=== PATIENT | male | born 1950 | race Caucasian/White ===

== ENCOUNTER 2024-01-16 22:38 | Inpatient (IN) | payer MEDICARE, OTHER ==
[~2024-01-16] VITALS: Ht 162.6 cm; Wt 104.3 kg
[2024-01-16 01:00] VITALS: BP 125/69; PULSE 62; RESP 18; TEMP 98.6; O2SAT 99
[2024-01-17] VITALS (9 sets, daily range): BP systolic 121–150; BP diastolic 52–78; PULSE 62–76; RESP 17–19; TEMP 97.8–99.6; O2SAT 96–100
[2024-01-17] MEDS ORDERED: ONDANSETRON HCL INJ 2MG/ML 2ML 2 MG/ML VIAL IV PRN (00:30)
[2024-01-17] MEDS ORDERED: ACETAMINOPHEN 325 MG TAB PO PRN (00:30)
[2024-01-17] MEDS: DIPHENHYDRAMINE HCL 25 MG CAP PO PRN (02:27)
[2024-01-17] MEDS: HYDROCODONE/APAP 10MG-325MG TAB PO PRN (02:27)
[2024-01-17 06:20] LABS: BASOPHILS % 0.1 % (0.0-1.0); EOSINOPHILS # (AUTO) 0.4 (0.0-0.4); EOSINOPHILS % 5.8 % (0.0-6.0); HEMATOCRIT 31.7 % (38.2-49.6); HEMOGLOBIN 9.5 g/dL (14.0-18.0); LYMPHOCYTES # (AUTO) 0.5 (1.0-3.2); LYMPHOCYTES % 6.9 % (18.0-39.1); MEAN CORPUSCULAR VOLUME 83.4 fL (81-99); MONOCYTES # (AUTO) 0.8 (0.2-0.8); NEUTROPHILS # (AUTO) 5.8 (2.1-6.9); NEUTROPHILS % 76.3 % (38.7-80.0); PLATELET COUNT 259 x10e3/uL (140-360); RED CELL DISTRIBUTION WIDTH 15.8 % (11.7-14.4); WHITE BLOOD COUNT 7.58 x10e3/uL (4.8-10.8)
[2024-01-17 06:22] LABS: INR 1.04; PROTHROMBIN TIME 14.3 seconds (11.9-14.5)
[2024-01-17 06:23] LABS: PARTIAL THROMBOPLASTIN TIME 36.6 seconds (23.8-35.5)
[2024-01-17 06:36] LABS: ALBUMIN 2.6 g/dL (3.5-5.0); ALBUMIN/GLOBULIN RATIO 0.9 (0.8-2.0); BILIRUBIN,TOTAL 0.6 mg/dL (0.2-1.2); CALCIUM 8.5 mg/dL (8.4-10.2); CREATININE, SERUM 0.81 mg/dL (0.72-1.25); TOTAL PROTEIN 5.5 g/dL (6.5-8.1)
[2024-01-17] MEDS ORDERED: CEFADROXIL500 MG PO (06:47)
[2024-01-17] MEDS ORDERED: ASPIRIN81 MG PO (06:47)
[2024-01-17] MEDS ORDERED: ZEBETA10 MG PO (06:47)
[2024-01-17] MEDS ORDERED: PROTONIX20 MG PO (06:47)
[2024-01-17] MEDS ORDERED: COLESTIPOL HCL1 GM PO (06:47)
[2024-01-17] MEDS ORDERED: XARELTO10 MG PO (06:47)
[2024-01-17] MEDS ORDERED: DIOVAN160 MG PO (06:47)
[2024-01-17] MEDS ORDERED: HYDROCHLOROTHIA25 MG PO (06:47)
[2024-01-17] MEDS ORDERED: HYDROCODON-ACE1 EAC8 PO (06:47)
[2024-01-17] MEDS ORDERED: POTASSIUM CHLO20 ME1 PO (06:47)
[2024-01-17] MEDS ORDERED: FEROSUL325 MG PO (06:47)
[2024-01-17] MEDS ORDERED: FLOMAX0.4 MG PO (06:47)
[2024-01-17] MEDS ORDERED: CELEBREX200 MG PO (06:47)
[2024-01-17] MEDS ORDERED: CYCLOBENZAPRINE10 MG PO (06:47)
[2024-01-17] MEDS: HYDROCODONE/APAP 5MG-325MG TAB PO PRN (06:56)
[2024-01-17] MEDS ORDERED: IOPAMIDOL 370 MG/ML 100 ML INFUS..BTL INJ ONE (10:12)
[2024-01-17] MEDS: Vancomycin IV 1 GM in SODIUM CHLORIDE 0.9% 250ML 250 ML IV ONE (13:04)
[2024-01-17] MEDS: Vancomycin IV 1 GM in SODIUM CHLORIDE 0.9% 250ML 250 ML IV SCH (13:05)
[2024-01-17] MEDS ORDERED: CYCLOBENZAPRINE HCL 10 MG TAB PO PRN (13:45)
[2024-01-17] MEDS: ENOXAPARIN SOD INJ 40 MG/0.4 ML SYR SC SCH (17:00)
[2024-01-18] VITALS (8 sets, daily range): BP systolic 128–146; BP diastolic 59–83; PULSE 68–97; RESP 16–18; TEMP 97.7–98.6; O2SAT 97–100
[2024-01-18 05:22] LABS: BASOPHILS % 0.1 % (0.0-1.0); EOSINOPHILS # (AUTO) 0.6 (0.0-0.4); EOSINOPHILS % 8.1 % (0.0-6.0); HEMATOCRIT 32.9 % (38.2-49.6); LYMPHOCYTES # (AUTO) 0.6 (1.0-3.2); LYMPHOCYTES % 7.7 % (18.0-39.1); MEAN CORPUSCULAR HEMOGLOBIN 25.4 pg (28-32); MEAN CORPUSCULAR HGB CONC 30.4 g/dL (31-35); MEAN CORPUSCULAR VOLUME 83.5 fL (81-99); MONOCYTES # (AUTO) 0.8 (0.2-0.8); MONOCYTES % 11.3 % (4.4-11.3); NEUTROPHILS # (AUTO) 5.3 (2.1-6.9); PLATELET COUNT 278 x10e3/uL (140-360); RED BLOOD COUNT 3.94 x10e6/uL (4.3-5.7); RED CELL DISTRIBUTION WIDTH 15.8 % (11.7-14.4); WHITE BLOOD COUNT 7.41 x10e3/uL (4.8-10.8)
[2024-01-18 05:46] LABS: ALBUMIN 2.8 g/dL (3.5-5.0); ALBUMIN/GLOBULIN RATIO 0.8 (0.8-2.0); BILIRUBIN,TOTAL 0.5 mg/dL (0.2-1.2); CALCIUM 8.7 mg/dL (8.4-10.2); CREATININE, SERUM 0.9 mg/dL (0.72-1.25); TOTAL PROTEIN 6.1 g/dL (6.5-8.1)
[2024-01-18] MEDS: PANTOPRAZOLE SODIUM 20 MG TABLET.DR PO SCH (08:37)
[2024-01-18] MEDS: FERROUS SULFATE 325 MG TAB PO SCH (08:37)
[2024-01-18] MEDS: TAMSULOSIN HCL 0.4 MG CAP PO SCH (08:37)
[2024-01-18] MEDS ORDERED: ONDANSETRON HCL 4 MG ORAL DISINTEGRATING TAB PO PRN ×2 (10:15)
[2024-01-19] VITALS (11 sets, daily range): BP systolic 128–150; BP diastolic 52–91; PULSE 60–96; RESP 16–19; TEMP 98.1–98.8; O2SAT 93–100
[2024-01-19 07:40] LABS: BASOPHILS % 0.5 % (0.0-1.0); EOSINOPHILS # (AUTO) 0.6 (0.0-0.4); EOSINOPHILS % 7.6 % (0.0-6.0); HEMATOCRIT 28.2 % (38.2-49.6); LYMPHOCYTES # (AUTO) 0.5 (1.0-3.2); LYMPHOCYTES % 6.6 % (18.0-39.1); MEAN CORPUSCULAR HEMOGLOBIN 25.9 pg (28-32); MEAN CORPUSCULAR HGB CONC 31.9 g/dL (31-35); MONOCYTES # (AUTO) 0.8 (0.2-0.8); MONOCYTES % 11.1 % (4.4-11.3); NEUTROPHILS # (AUTO) 5.3 (2.1-6.9); NEUTROPHILS % 73.4 % (38.7-80.0); PLATELET COUNT 242 x10e3/uL (140-360); RED BLOOD COUNT 3.48 x10e6/uL (4.3-5.7); RED CELL DISTRIBUTION WIDTH 15.8 % (11.7-14.4); WHITE BLOOD COUNT 7.28 x10e3/uL (4.8-10.8)
[2024-01-19 08:09] LABS: ALBUMIN 2.6 g/dL (3.5-5.0); ANION GAP 12.3 mmol/L (8-16); BILIRUBIN,TOTAL 0.4 mg/dL (0.2-1.2); CALCIUM 8.5 mg/dL (8.4-10.2); CREATININE, SERUM 0.94 mg/dL (0.72-1.25); POTASSIUM 4.3 mmol/L (3.5-5.1); TOTAL PROTEIN 5.2 g/dL (6.5-8.1)
[2024-01-19] MEDS: HYDROCHLOROTHIAZIDE 25 MG TAB PO SCH (10:33)
[2024-01-19] MEDS: ALBUTEROL/IPRATROPIUM 3 ML NEB NEB SCH (11:00)
[2024-01-20] VITALS (11 sets, daily range): BP systolic 138–161; BP diastolic 60–85; PULSE 52–95; RESP 18–22; TEMP 98.1–98.4; O2SAT 93–100
[2024-01-20 06:19] LABS: BASOPHILS % 0.4 % (0.0-1.0); EOSINOPHILS # (AUTO) 0.6 (0.0-0.4); EOSINOPHILS % 6.9 % (0.0-6.0); HEMOGLOBIN 9.3 g/dL (14.0-18.0); LYMPHOCYTES # (AUTO) 0.6 (1.0-3.2); LYMPHOCYTES % 6.9 % (18.0-39.1); MEAN CORPUSCULAR HEMOGLOBIN 25.9 pg (28-32); MEAN CORPUSCULAR HGB CONC 32.1 g/dL (31-35); MEAN CORPUSCULAR VOLUME 80.8 fL (81-99); MONOCYTES # (AUTO) 0.8 (0.2-0.8); MONOCYTES % 9.2 % (4.4-11.3); NEUTROPHILS # (AUTO) 6.3 (2.1-6.9); NEUTROPHILS % 75.9 % (38.7-80.0); PLATELET COUNT 232 x10e3/uL (140-360); RED BLOOD COUNT 3.59 x10e6/uL (4.3-5.7); RED CELL DISTRIBUTION WIDTH 15.7 % (11.7-14.4); WHITE BLOOD COUNT 8.27 x10e3/uL (4.8-10.8)
[2024-01-20 06:48] LABS: ALBUMIN 2.6 g/dL (3.5-5.0); ALBUMIN/GLOBULIN RATIO 0.9 (0.8-2.0); ANION GAP 15.4 mmol/L (8-16); BILIRUBIN,TOTAL 0.5 mg/dL (0.2-1.2); CALCIUM 8.5 mg/dL (8.4-10.2); CREATININE, SERUM 0.86 mg/dL (0.72-1.25); TOTAL PROTEIN 5.6 g/dL (6.5-8.1)
[2024-01-20 07:03] LABS: POTASSIUM 3.4 mmol/L (3.5-5.1)
[2024-01-20] MEDS ORDERED: CLEOCIN HCL300 MG PO (15:14)
[2024-01-20] MEDS ORDERED: Vancomycin IV 1 GM in SODIUM CHLORIDE 0.9% 250ML 250 ML IV SCH (18:00)
== END 2024-01-20 17:29 | disposition home or self-care (01) | DRG 603 ==
LOC: MED/SURG2 23:33
PROVIDERS: ADMIT Internal Medicine; ATTEND Internal Medicine
DX: L03.116 Cellulitis of left lower limb (principal); M25.462 Effusion, left knee; D50.9 Iron deficiency anemia, unspecified; R73.09 Other abnormal glucose; R79.89 Other specified abnormal findings of blood chemistry; Z96.653 Presence of artificial knee joint, bilateral; J44.9 Chronic obstructive pulmonary disease, unspecified; F17.200 Nicotine dependence, unspecified, uncomplicated; I10 Essential (primary) hypertension; E66.01 Morbid (severe) obesity due to excess calories; Z68.39 Body mass index [BMI] 39.0-39.9, adult; Z85.46 Personal history of malignant neoplasm of prostate; Z86.79 Personal history of other diseases of the circulatory system; Z86.718 Personal history of other venous thrombosis and embolism; Z79.01 Long term (current) use of anticoagulants; Z79.899 Other long term (current) drug therapy; Z79.82 Long term (current) use of aspirin; Z98.890 Other specified postprocedural states; Z88.5 Allergy status to narcotic agent; Z91.048 Other nonmedicinal substance allergy status
CPT/HCPCS: 36415; 80053; 80202; 83036; 83605; 85025; 85610; 85730; 87040; 93971; 94640; 94799; 99252; J0696; J1650; J7050; Q9967